=== PATIENT | female | born 1940 | race Caucasian/White ===

== ENCOUNTER 2021-01-12 16:38 | Outpatient (CLI) | payer MEDICARE, SELFPAY | END 2021-01-12 16:39 | disposition home or self-care (01) | LOC: ANHCOVIDVC 16:38 | PROVIDERS: PCP Physician Assistant | DX: Z23 Encounter for immunization (principal) | CPT/HCPCS: 0001A; 91300 ==

== ENCOUNTER 2021-02-02 17:20 | Outpatient (CLI) | payer MEDICARE, SELFPAY | END 2021-02-02 17:21 | disposition home or self-care (01) | LOC: ANHCOVIDVC 17:20 | PROVIDERS: PCP Physician Assistant | DX: Z23 Encounter for immunization (principal) | CPT/HCPCS: 0002A; 91300 ==

== ENCOUNTER 2021-07-23 15:39 | Emergency (ER) | payer MEDICARE, SELFPAY ==
--- NOTE | ~2021-07-23 | XR_ITS ---
EXAMINATION: XR wrist RT min 3V INDICATION: Right wrist pain, initial encounter TECHNIQUE: Three views of the right wrist are obtained. COMPARISON: None available FINDINGS: There is an acute, traumatic, closed, transverse fracture of the distal radius. There is im paction at the fracture site but alignment remains near-anatomic. There is an ulnar styloid avulsion. There is wrist soft tissue swelling. No additional acute osseous abnormality is identified. IMPRESSION: 1. Transverse fracture of the distal radius and ulnar styloid avulsion. Reviewed, dictated and finalized at location A.
--- NOTE | ~2021-07-23 | XR_ITS ---
EXAMINATION: XR elbow RT min 3V INDICATION: Right elbow pain TECHNIQUE: Four views of the right elbow are obtained. COMPARISON: None available FINDINGS: Bone alignment is normal. There is no fracture. There is mild osteoarthritis. Posterior sof t tissue swelling is noted. IMPRESSION: 1. No acute osseous abnormality. Reviewed, dictated and finalized at location A.
[2021-07-23 16:05] VITALS: BP 116/100; PULSE 97; RESP 18; TEMP 36.4; O2SAT 95
[2021-07-23 16:34] VITALS: BP 116/70; PULSE 68; RESP 20; TEMP 36.4
--- NOTE | 2021-07-23 16:53 | ED.UPPEXIN ---
HPI - Extremity Injury (Upper) General Chief Complaint: Fall Stated Complaint: right arm injury Time Seen by Provider: 07/23/21 16:26 Source: patient and family Mode of arrival: ambulatory Limitations: dementia History of Present Illness HPI narrative: 80-year-old female She was walking her [place] husky and it tugged and she fell and landed on her right arm No other injuries, did not hit her head, no neck pain, only pain and tenderness of the wrist Related Data Allergies Allergy/AdvReac Type Severity Reaction Status Date / Time No Known Allergies Allergy Verified 07/23/21 16:31 Review of Systems Review of Systems: All systems reviewed & are unremarkable except as noted in HPI and below Constitutional: Constitutional: Reports no additional constitutional complaints, Denies fatigue, Denies headache(s) and Denies weakness Eyes: Eyes: Reports no additional eye complaints and Denies change in vision ENT: Denies vertigo and Denies headache(s) Cardiovascular: Cardiovascular: Denies chest pain and Denies dyspnea Respiratory: Respiratory: Denies cough Gastrointestinal: Gastrointestinal: Denies abdominal pain Genitourinary: Genitourinary: Denies urinary frequency Musculoskeletal: Musculoskeletal: Denies back pain, Denies deformity, Reports arthralgias, Reports joint swelling and Denies numbness Integumentary/Breasts: Skin/Breast: Denies erythema and Denies wounds Neurologic: Denies headache(s), Denies focal weakness and Denies numbness Psychiatric: Psychiatric: Reports no additional psychiatric complaints Endocrine: Endocrine: Reports no additional endocrine complaints Hematologic/Lymphatic: Hematologic/Lymphatic: Reports no additional hematologic/lymphatic complaints Allergic/Immunologic: Allergic/Immunologic: Reports no additional allergic/immunologic complaints [facility] Social History Social History Smoking status: Heavy tobacco smoker Alcohol intake: never Exam Const: General: cooperative, no acute distress and alert Other: Frail, elderly HENMT: Head: normal to inspection, normocephalic, atraumatic, no contusions, no hematomas and no lacerations Ears: external ears normal Eyes: Conjunctivae: conjunctivae normal EOM: EOMs intact bilaterally Neck: Neck: normal visual inspection, supple and no JVD Other: No tenderness, no pain with range of motion Chest: Chest palpation & inspection: no tenderness Resp: Effort & Inspection: normal respiratory effort and not labored Auscultation: other (BS =) GI: GI Palp: Yes Soft to palpation and No Tenderness to palpation present (GI) Back/Spine/Pelvis: Other: No T or L-spine tenderness Skin: General skin exam: normal color and no rashes or lesions noted Neuro: General: moves all extremities and no focal motor deficits Speech: normal speech Other: Intact sensation and motor in the affected hand Extrem: Other: There is mild tenderness over the right distal radius and but very little swelling and no gross deformity, pulses present Psych: Affect: normal affect Course Course Emergency Course: Discussed diagnosis treatment and need for follow-up with patient and with her sister Splinted by nurse and techs Vital Signs Vital signs: Vital Signs Temperature 36.4 C L 07/23/21 16:05 Pulse Rate 97 07/23/21 16:05 Respiratory Rate 18 07/23/21 16:05 Blood Pressure 116/100 H 07/23/21 16:05 Pulse Oximetry 95 07/23/21 16:05 Temperature 36.4 C L 07/23/21 16:34 Pulse Rate 68 07/23/21 16:34 Respiratory Rate 20 07/23/21 16:34 Blood Pressure 116/70 07/23/21 16:34 Pulse Oximetry 95 07/23/21 16:05 Discharge Plan Discharge Clinical Impression: Distal radius fracture, right, Closed fracture of ulna, styloid process Patient Disposition: Home, Self-Care Condition: Stable Instructions: Wrist Fracture in Adults (ED), Splint Care (ED) Prescriptions: New hydrocodone-acet
== END 2021-07-23 17:39 | disposition home or self-care (01) ==
PROVIDERS: Emergency Provider Emergency Medicine; PCP Internal Medicine
DX: S52.591A Other fractures of lower end of right radius, initial encounter for closed fracture (principal); S52.611A Displaced fracture of right ulna styloid process, initial encounter for closed fracture; F17.200 Nicotine dependence, unspecified, uncomplicated; W18.39XA Other fall on same level, initial encounter; Y93.K1 Activity, walking an animal
CPT/HCPCS: 29125; 73080; 73110; 99284; A4565